=== PATIENT | male | born 1965 | race Two or more races ===

== ENCOUNTER 2016-03-22 01:06 | Emergency (ER) | payer MEDICAID ==
[~2016-03-22] VITALS: Ht 175.3 cm; Wt 91.2 kg
[2016-03-22] MEDS ORDERED: FLUORESCEIN SOD 1 MG TEST STRIP ONE (06:45)
[2016-03-22] MEDS ORDERED: TETRACAINE HCL 0.5% OPTH(EYE) SOLN 4ML ONE (06:45)
[2016-03-22] MEDS ORDERED: FLUORESCEIN SOD 1 MG TEST STRIP LEFTEYE ONE (07:15)
[2016-03-22] MEDS ORDERED: TETRACAINE 1% INJ 2 ML VIAL IJ ONE (07:15)
[2016-03-22] MEDS ORDERED: NEOMYCIN-POLYMY-DEXAMETH 0.1% OPTH(EYE) SUSP 5ML LEFTEYE ONE (07:30)
[2016-03-22] MEDS ORDERED: TETRACAINE HCL 0.5% OPTH(EYE) SOLN 4ML LEFTEYE ONE (07:30)
[2016-03-22 07:38] VITALS: BP 97/67
== END 2016-03-22 09:10 | disposition home or self-care (01) ==
LOC: ER 01:07
DX: T15.02XA Foreign body in cornea, left eye, initial encounter (principal); W22.8XXA Striking against or struck by other objects, initial encounter; Y93.89 Activity, other specified; Y99.8 Other external cause status; Y92.69 Other specified industrial and construction area as the place of occurrence of the external cause
CPT/HCPCS: 65220

== ENCOUNTER 2016-04-14 19:52 | Inpatient (IN) | payer MEDICAID ==
[~2016-04-14] VITALS: Ht 175.3 cm; Wt 89.3 kg
[2016-04-14 20:15] LABS: Urine RBC None Seen /hpf (0 - 3)
[2016-04-14 20:23] LABS: Urine Bilirubin Negative (Negative); Urine Blood Negative /uL (Negative); Urine Color Colorless (Yellow); Urine Glucose Normal (Normal); Urine Ketone Negative (Negative); Urine Nitrite Negative (Negative); Urine Urobilinogen Normal (Negative); Urine pH 6.5 (5.0-8.0)
[2016-04-14 20:27] LABS: Basophils # (auto) 0.1 uL; Basophils % (auto) 0.7 % (0.0-2.0); Eosinophils # (auto) 0.2 uL; Eosinophils % (auto) 2.2 % (0.0-7.0); Hematocrit 45.4 % (41.0-53.0); Hemoglobin 15.6 g/dL (13.5-17.5); Lymphocytes # (auto) 3.6 uL; Lymphocytes % (auto) 46.8 % (10.0-50.0); Mean Corpuscular Hemoglobin 30.1 pg (28.0-32.0); Mean Corpuscular Hgb Conc. 34.3 g/dL (32.0-36.0); Mean Corpuscular Volume 87.8 fL (80.0-100.0); Mean Platelet Volume 7.3 fL (7.4-10.4); Monocytes # (auto) 0.6 uL; Monocytes % (auto) 7.7 % (0.0-12.0); Neutrophils # (auto) 3.3 uL; Neutrophils % (auto) 42.6 % (37.0-80.0); Platelet Count (auto) 271 10^3/uL (140-450); Red Cell Distribution Width 12.8 % (11.6-16.0); White Blood Cell 7.7 10^3/uL (4.4-10.8)
[2016-04-14 20:47] LABS: Partial Thromboplastin Time 27.2 sec (22.64-33.71); Prothrombin Time 11.9 sec (9.37-12.3)
[2016-04-14 20:56] LABS: Albumin 4.5 g/dL (3.4-5.0); BUN/Creatinine Ratio 12.9; Calcium 8.9 mg/dL (8.5-10.1); Potassium 4.1 mmol/L (3.5-5.1)
[2016-04-14 21:03] LABS: INR 1.16 (0.9-1.15)
[2016-04-15] MEDS ORDERED: SODIUM CHLORIDE 0.9% 1,000 ML IV SCH (04:27)
[2016-04-15] MEDS ORDERED: TEMAZEPAM 15 MG CAP PO PRN (04:30)
[2016-04-15] MEDS ORDERED: PANTOPRAZOLE SODIUM 40 MG/10 ML VIAL IV ONE (04:30)
[2016-04-15] MEDS ORDERED: FLEET ENEMA(ADULT) 135 ML PR ONE (04:30)
[2016-04-15] MEDS ORDERED: MILK OF MAGNESIA 30ML SUSP PO ONE (04:30)
[2016-04-15] MEDS ORDERED: ONDANSETRON HCL 4 MG/2 ML VIAL IV PRN (04:30)
[2016-04-15] MEDS ORDERED: ACETAMINOPHEN 325 MG TAB PO PRN (04:30)
[2016-04-15 04:57] LABS: Hematocrit 44.7 % (41.0-53.0); Hemoglobin 15.4 g/dL (13.5-17.5)
[2016-04-15 05:10] VITALS: BP 130/72
[2016-04-15 08:00] VITALS: BP 106/61
[2016-04-15 09:00] VITALS: BP 106/61
[2016-04-15] MEDS ORDERED: PANTOPRAZOLE SODIUM 40 MG/10 ML VIAL IV SCH ×2 (10:00→22:00)
[2016-04-15] MEDS ORDERED: DOCUSATE SOD 100 MG CAP PO SCH (10:00)
[2016-04-15 13:00] VITALS: BP 97/64
[2016-04-15] MEDS: HYDROcodone-ACET 5/325MG TAB PO PRN ×2 (13:21→20:19)
[2016-04-15] MEDS ORDERED: GOLYTELY 4L KIT PO ONE (13:45)
[2016-04-15 17:03] VITALS: BP 98/64
[2016-04-15] MEDS ORDERED: ACETAMINOPHEN 650 MG RECT SUPP PR PRN (20:15)
[2016-04-15] MEDS: D5W/SOD CHLO 0.9% 1,000 ML IV SCH (20:20)
[2016-04-15 21:30] VITALS: BP 115/73
[2016-04-15] MEDS ORDERED: PANTOPRAZOLE 40 MG TAB PO SCH (22:00)
[2016-04-16] VITALS (7 sets, daily range): BP systolic 94–119; BP diastolic 49–65
[2016-04-16 06:03] LABS: Basophils # (auto) 0 uL; Basophils % (auto) 0.9 % (0.0-2.0); Eosinophils # (auto) 0.1 uL; Eosinophils % (auto) 3.1 % (0.0-7.0); Hematocrit 41.2 % (41.0-53.0); Hemoglobin 14.2 g/dL (13.5-17.5); Lymphocytes # (auto) 2.1 uL; Lymphocytes % (auto) 45.4 % (10.0-50.0); Mean Corpuscular Hgb Conc. 34.4 g/dL (32.0-36.0); Mean Corpuscular Volume 87.2 fL (80.0-100.0); Mean Platelet Volume 7.5 fL (7.4-10.4); Monocytes # (auto) 0.4 uL; Monocytes % (auto) 8.6 % (0.0-12.0); Platelet Count (auto) 224 10^3/uL (140-450); Red Cell Distribution Width 13.1 % (11.6-16.0); White Blood Cell 4.7 10^3/uL (4.4-10.8)
[2016-04-16 06:50] LABS: Albumin 3.7 g/dL (3.4-5.0); BUN/Creatinine Ratio 7.1; Bilirubin, Total 1.4 mg/dL (0.2-1.0); Calcium 8.7 mg/dL (8.5-10.1); Magnesium 2.4 mg/dL (1.6-2.6); Phosphorus 2.4 mg/dL (2.5-4.90); Potassium 4.4 mmol/L (3.5-5.1); Total Protein 6.8 g/dL (6.4-8.2)
[2016-04-16] MEDS ORDERED: LIDOCAINE VISCOUS 2% 15ML UD ONE (08:09)
[2016-04-16] MEDS ORDERED: SODIUM CHLORIDE LOCK 10 ML ONE (08:09)
[2016-04-16] MEDS ORDERED: diphenhdrAMINE HCL 50 MG/1 ML VL ONE (08:09)
[2016-04-16] MEDS ORDERED: NALOXONE HCL 0.4 MG/ML VIAL ONE (08:10)
[2016-04-16] MEDS ORDERED: FLUMAZENIL 0.1 MG/ML INJ 10ML MDV IV ONE (08:10)
[2016-04-16] MEDS: MIDAZOLAM HCL 5 MG/ML-1ML VIAL ONE ×3 (09:00→09:10)
[2016-04-16] MEDS: fentaNYL CITRATE 100 MCG/2 ML VL ONE ×3 (09:00→09:10)
[2016-04-16] MEDS ORDERED: NEUTRA-PHOS TABLET PO ONE (10:00)
[2016-04-16] MEDS: PANTOPRAZOLE 40 MG TAB PO SCH (11:09)
[2016-04-16] MEDS: HYDROcodone-ACET 5/325MG TAB PO PRN ×2 (11:12→18:21)
[2016-04-16] MEDS: D5W/SOD CHLO 0.9% 1,000 ML IV SCH (11:13)
[2016-04-16] MEDS: MORPHINE SULF INJ 2 MG/ML SYRINGE 1ML IV PRN ×2 (15:03→21:43)
[2016-04-17 04:57] VITALS: BP 104/63
[2016-04-17] MEDS: MORPHINE SULF INJ 2 MG/ML SYRINGE 1ML IV PRN ×3 (05:46→11:51)
[2016-04-17] MEDS: D5W/SOD CHLO 0.9% 1,000 ML IV SCH ×2 (05:52→12:15)
[2016-04-17 08:00] VITALS: BP 98/58
[2016-04-17 09:48] VITALS: BP 107/64
[2016-04-17] MEDS ORDERED: INFLUENZA QUAD 2016-2017 0.5 ML SYRG IM ONE (10:00)
[2016-04-17] MEDS: PANTOPRAZOLE 40 MG TAB PO SCH (10:22)
[2016-04-17] MEDS ORDERED: PANT40T PO (13:44)
[2016-04-17] MEDS ORDERED: NOR5T PO (13:44)
[2016-04-17 14:29] VITALS: BP 116/63
[2016-04-17 14:30] VITALS: BP 104/64
== END 2016-04-17 18:52 | disposition home or self-care (01) | DRG 244 ==
LOC: ER 19:54 → OVERFLOW 19:55 → CENTRAL 04-15 04:50
PROVIDERS: ADMIT Nurse Practitioner; ATTEND Internal Medicine
PROC: 0DJD8ZZ Inspection of Lower Intestinal Tract, Via Natural or Artificial Opening Endoscopic (ICD-10-PCS; 2016-04-16)
PROC: 0DB68ZX Excision of Stomach, Via Natural or Artificial Opening Endoscopic, Diagnostic (ICD-10-PCS; principal; 2016-04-16 08:55)
PROC: 0DBN8ZX Excision of Sigmoid Colon, Via Natural or Artificial Opening Endoscopic, Diagnostic (ICD-10-PCS; 2016-04-16 08:55)
DX: K57.31 Diverticulosis of large intestine without perforation or abscess with bleeding (principal); K56.7 Ileus, unspecified; K62.5 Hemorrhage of anus and rectum; B19.20 Unspecified viral hepatitis C without hepatic coma; K64.9 Unspecified hemorrhoids; K59.00 Constipation, unspecified; M51.36 Other intervertebral disc degeneration, lumbar region; K52.9 Noninfective gastroenteritis and colitis, unspecified; M43.17 Spondylolisthesis, lumbosacral region; Z87.11 Personal history of peptic ulcer disease; Z90.49 Acquired absence of other specified parts of digestive tract; Z23 Encounter for immunization
CPT/HCPCS: 36415; 74176; 80053; 80061; 81001; 83540; 83550; 83735; 84100; 85014; 85018; 85025; 85610; 85730; 87081; 96361; 96374; C9113; J2250; J7042